=== PATIENT | female | born 1995 | race American Indian/Alaskan Native ===

== ENCOUNTER 2021-06-12 18:06 | Outpatient (CLI) | payer OTHER ==
[2021-06-12] MEDS ORDERED: LACTATED RINGERS 1,000 ML IV ONE (19:22)
[2021-06-12 19:45] LABS: Bacteria,Urine 1+ /HPF (Negative); Bilirubin,Urine NEG (Negative); Blood,Urine NEG (Negative); Color,Urine Yellow (Yellow); Mucus,Urine FEW /HPF; Protein,Urine <15 mg/dL mg/dL (Negative)
[2021-06-12 19:53] VITALS: BP 102/57
== END 2021-06-12 20:05 | disposition home or self-care (01) ==
LOC: TRG 18:06 → APU 18:07 → TRG 20:05
PROVIDERS: ATTEND Obstetrics & Gynecology
DX: Z34.93 Encounter for supervision of normal pregnancy, unspecified, third trimester (principal); Z3A.36 36 weeks gestation of pregnancy
CPT/HCPCS: 59025; 81001